=== PATIENT | female | born 1970 ===

== ENCOUNTER 2018-03-15 13:35 | Emergency (ER) | payer SELFPAY ==
[~2018-03-15] VITALS: Ht 172.7 cm; Wt 62.0 kg
[2018-03-15] MEDS ORDERED: IBUPROFEN 600MG TABLET PO ONE (14:30)
[2018-03-15 15:28] VITALS: BP 130/84
== END 2018-03-15 15:29 | disposition home or self-care (01) ==
LOC: ER 13:35
DX: S70.01XA Contusion of right hip, initial encounter (principal); S90.01XA Contusion of right ankle, initial encounter; V03.10XA Pedestrian on foot injured in collision with car, pick-up truck or van in traffic accident, initial encounter; Y93.89 Activity, other specified; Y92.410 Unspecified street and highway as the place of occurrence of the external cause; R03.0 Elevated blood-pressure reading, without diagnosis of hypertension
CPT/HCPCS: 73502; 73610; 81025; 99284